=== PATIENT | female | born 1995 | race Caucasian/White ===

== ENCOUNTER 2017-06-12 15:27 | Inpatient (IN) | payer MEDICAID ==
[2017-06-12 16:26] LABS: ADD MAN DIFF? NO
[2017-06-12] MEDS ORDERED: IBUPROFEN 600 MG TAB PO (16:30)
[2017-06-12] MEDS ORDERED: OXYTOCIN 30 UNITS/LR 500 ML IV (16:30)
[2017-06-12] MEDS ORDERED: METHYLERGONOVINE 0.2 MG INJ IM (16:30)
[2017-06-12] MEDS ORDERED: LIDOCAINE 1% (MPF) 30 ML INJ INJ (16:30)
[2017-06-12] MEDS ORDERED: CARBOPROST 250 MCG INJ IM (16:30)
[2017-06-12 16:32] LABS: BASOPHIL # 0.1 10^3/ul (0.0-0.1); BASOPHILS % 0.6 % (0.0-2.0); EOSINOPHILS # 0.1 10^3/ul (0.0-0.5); EOSINOPHILS % 1.4 % (0.0-7.0); HEMATOCRIT 37.3 % (37.0-47.0); HEMOGLOBIN 12.8 g/dl (12.0-16.0); LYMPHOCYTES # 3.2 10^3/ul (0.8-2.9); LYMPHOCYTES % 30.6 % (18.0-55.0); MEAN CORPUSCULAR HEMOGLOBIN 29.3 pg (29.0-33.0); MEAN CORPUSCULAR HGB CONC 34.3 g/dl (32.0-37.0); MEAN CORPUSCULAR VOLUME 85.4 fl (72.0-104.0); MEAN PLATELET VOLUME 11.9 fl (7.4-10.4); MONOCYTE # 0.5 10^3/ul (0.3-0.9); MONOCYTES % 4.8 % (0.0-13.0); NEUTROPHIL # 6.4 10^3/ul (1.6-7.5); NEUTROPHILS % 61.8 % (30.0-74.0); PLATELET COUNT 281 10^3/UL (140-415); RED BLOOD COUNT 4.37 10^6/ul (4.20-5.40); RED CELL DISTRIBUTION WIDTH 13.6 % (11.5-14.5)
[2017-06-12 16:32] LABS: WHITE BLOOD COUNT 10.3 10^3/ul (4.8-10.8)
[2017-06-12 16:50] LABS: INR 0.87; PROTIME 11.9 Sec (11.9-14.9); PT RATIO 0.9
[2017-06-12 16:54] LABS: GLUCOSE 85 mg/dl (70-220)
[2017-06-12] MEDS: AMPICILLIN 2 GM/NS (PMX) 100 ML IV (17:03)
[2017-06-12] MEDS: MISOPROSTOL 25 MCG CAPSULE PO ×2 (17:03→21:00)
[2017-06-12] MEDS: LACTATED RINGER'S 1,000 ML IV (17:04)
[2017-06-12] MEDS: AMPICILLIN 1 GM/NS (PMX) 50 ML IV (20:53)
[2017-06-12] MEDS: DEXTROSE 5%-LR 1,000 ML IV (20:53)
[2017-06-12 21:47] LABS: RAPID PLASMA REAGIN NONREACTIVE (NR)
[2017-06-13] MEDS: LACTATED RINGER'S 1,000 ML IV ×4 (00:04→13:10)
[2017-06-13] MEDS: MISOPROSTOL 25 MCG CAPSULE PO ×2 (00:34→05:00)
[2017-06-13] MEDS: AMPICILLIN 1 GM/NS (PMX) 50 ML IV ×5 (00:34→16:35)
[2017-06-13] MEDS: BUTORPHANOL 2 MG INJ IV (05:49)
[2017-06-13] MEDS ORDERED: FENTAnyl 2MCG/ML-ROPIV 0.2% 100 ML (12:57)
[2017-06-13] MEDS ORDERED: NALOXONE (0.4 MG/ML) INJ IV (14:00)
[2017-06-13] MEDS ORDERED: FENTAnyl 2MCG/ML-ROPIV 0.2% 100 ML BAG EPI (14:00)
[2017-06-13] MEDS: OXYTOCIN 30 UNITS/LR 500 ML IV ×3 (18:07→18:24)
[2017-06-13] MEDS: MISOPROSTOL 200 MCG TAB PR (18:07)
[2017-06-13] MEDS ORDERED: OXYTOCIN 30 UNITS/LR 500 ML IV (21:00)
[2017-06-13] MEDS ORDERED: BENZOCAINE 20% 56 ML SPRAY TOP (21:00)
[2017-06-13] MEDS ORDERED: HYDROCODONE/APAP (5/325) TAB PO (21:00)
[2017-06-13] MEDS ORDERED: MISOPROSTOL 200 MCG TAB PR (21:00)
[2017-06-13] MEDS ORDERED: METHYLERGONOVINE 0.2 MG INJ IM (21:00)
[2017-06-13] MEDS ORDERED: LANOLIN 7 GM TUBE TOP (21:00)
[2017-06-13] MEDS ORDERED: CARBOPROST 250 MCG INJ IM (21:00)
[2017-06-13] MEDS ORDERED: ACETAMINOPHEN 325 MG TAB PO (21:00)
[2017-06-13] MEDS ORDERED: WITCH HAZEL/GLYCERIN PAD PR (21:00)
[2017-06-13] MEDS ORDERED: DIBUCAINE 1% 30 GM OINT PR (21:00)
[2017-06-13] MEDS: LACTATED RINGER'S 1,000 ML IV* (22:56)
[2017-06-13] MEDS: IBUPROFEN 600 MG TAB PO (23:27)
[2017-06-13] MEDS: SENNA/DOCUSATE NA (8.6MG/50MG) TAB PO (23:27)
[2017-06-14] MEDS: LACTATED RINGER'S 1,000 ML IV* ×2 (05:15→12:43)
[2017-06-14] MEDS: IBUPROFEN 600 MG TAB PO ×4 (05:16→23:19)
[2017-06-14] MEDS: SENNA/DOCUSATE NA (8.6MG/50MG) TAB PO ×2 (08:27→21:14)
[2017-06-14 08:28] LABS: ADD MAN DIFF? NO
[2017-06-14 08:30] LABS: BASOPHIL # 0.1 10^3/ul (0.0-0.1); BASOPHILS % 0.5 % (0.0-2.0); EOSINOPHILS # 0.1 10^3/ul (0.0-0.5); EOSINOPHILS % 0.6 % (0.0-7.0); HEMATOCRIT 32.3 % (37.0-47.0); HEMOGLOBIN 11.2 g/dl (12.0-16.0); LYMPHOCYTES # 3.1 10^3/ul (0.8-2.9); LYMPHOCYTES % 25.7 % (18.0-55.0); MEAN CORPUSCULAR HEMOGLOBIN 29.6 pg (29.0-33.0); MEAN CORPUSCULAR HGB CONC 34.7 g/dl (32.0-37.0); MEAN CORPUSCULAR VOLUME 85.2 fl (72.0-104.0); MEAN PLATELET VOLUME 11.5 fl (7.4-10.4); MONOCYTE # 0.6 10^3/ul (0.3-0.9); MONOCYTES % 4.6 % (0.0-13.0); NEUTROPHIL # 8.2 10^3/ul (1.6-7.5); NEUTROPHILS % 67.8 % (30.0-74.0); PLATELET COUNT 215 10^3/UL (140-415); RED BLOOD COUNT 3.79 10^6/ul (4.20-5.40); RED CELL DISTRIBUTION WIDTH 13.9 % (11.5-14.5)
[2017-06-14] MEDS ORDERED: DIPHTH/TET/ACEL PERTUSS (ADULT) 0.5 ML VIAL IM* (16:00)
[2017-06-14] MEDS: INFLUENZA VIRUS VACCINE 0.5 ML SYG IM* (17:15)
[2017-06-15] MEDS: IBUPROFEN 600 MG TAB PO ×2 (05:26→12:00)
[2017-06-15] MEDS: SENNA/DOCUSATE NA (8.6MG/50MG) TAB PO (08:48)
[2017-06-15] MEDS: DIPHTH/TET/ACEL PERTUSS (ADULT) 0.5 ML VIAL IM* (09:00)
[2017-06-15] MEDS ORDERED: INFLUENZA VIRUS VACCINE 0.5 ML SYG IM* (09:00)
[2017-06-15] MEDS ORDERED: DIPHTH/TET/ACEL PERTUSS (ADULT) 0.5 ML VIAL IM* (09:00)
== END 2017-06-15 12:48 | disposition home or self-care (01) | DRG 775 ==
LOC: L-D 15:27 → PP1 06-13 20:48
PROVIDERS: Obstetrics & Gynecology
PROC: 10E0XZZ Delivery of Products of Conception, External Approach (ICD-10-PCS; principal; 2017-06-13)
PROC: 3E033VJ Introduction of Other Hormone into Peripheral Vein, Percutaneous Approach (ICD-10-PCS; 2017-06-13)
PROC: 0UQGXZZ Repair Vagina, External Approach (ICD-10-PCS; 2017-06-13)
DX: O24.429 Gestational diabetes mellitus in childbirth, unspecified control (principal); O71.4 Obstetric high vaginal laceration alone; O48.0 Post-term pregnancy; Z3A.40 40 weeks gestation of pregnancy; Z37.0 Single live birth
CPT/HCPCS: 62319; 82947; 82962; 85025; 85610; 85730; 86592; 86850; 86900; 86901; 90686; 90715